=== PATIENT | male | born 1980 | race Caucasian/White ===

== ENCOUNTER 2021-04-17 15:12 | Emergency (ER) | payer OTHER ==
[~2021-04-17] VITALS: Ht 157.5 cm; Wt 72.6 kg
[2021-04-17 15:13] VITALS: BP 131/85
[2021-04-17] MEDS ORDERED: LIDODERM1 EACH TOP (15:29)
[2021-04-17] MEDS ORDERED: METHOCARBAMOL500 M2 PO (15:29)
== END 2021-04-17 15:45 | disposition home or self-care (01) ==
LOC: ER 15:12
DX: S29.012A Strain of muscle and tendon of back wall of thorax, initial encounter (principal); X58.XXXA Exposure to other specified factors, initial encounter; Y93.89 Activity, other specified; Y92.89 Other specified places as the place of occurrence of the external cause; Y99.8 Other external cause status

== ENCOUNTER 2021-04-30 08:52 | Emergency (ER) | payer OTHER ==
[~2021-04-30] VITALS: Ht 167.6 cm; Wt 72.6 kg
[~2021-04-30 08:52] MED LIST: LIDODERM1 EACH TOP; METHOCARBAMOL500 M2 PO
[2021-04-30 08:54] VITALS: BP 129/75
[2021-04-30] MEDS ORDERED: CYCLOBENZAPRINE5 MG PO (10:09)
[2021-04-30] MEDS ORDERED: IBUPROFEN 600600 M1 PO (10:09)
== END 2021-04-30 10:24 | disposition home or self-care (01) ==
LOC: ER 08:52
DX: M54.50 Low back pain, unspecified (principal); Z79.899 Other long term (current) drug therapy